=== PATIENT | male | born 1960 | race Caucasian/White ===

== ENCOUNTER 2021-11-18 11:39 | Observation (INO) ==
[2021-11-18] MEDS ORDERED: Naloxone 0.4 MG/ML INJ IVP PRN (14:33)
[2021-11-18] MEDS ORDERED: Ondansetron 4 MG/2 ML VIAL IVP PRN (14:33)
[2021-11-18] MEDS ORDERED: Perflutren Lipid Microsphere 1.3 ML in 0.9 % Sodium Chloride 8.7 ML IVP PRN (15:21)
[2021-11-18 15:38] LABS: Hematocrit 28.6 % (37.5-50.1); Hemoglobin 8.1 g/dL (12.9-16.9); Mean Corpuscular HGB Conc 28.3 g/dL (31.6-35.5)
[2021-11-18 15:41] LABS: Basophils % 0.6 %; Eosinophils # 0.1 K/mcL (0.0-0.6); Eosinophils % 3.1 %; Immature Granulocytes % 0.3 % (0-4); Immature Platelets 2.9 % (1.1-6.1); Lymphocytes # 0.7 K/mcL (0.6-4.6); Mean Corpuscular Hemoglobin 22.5 pg (28.0-33.3); Mean Corpuscular Volume 79.4 fL (83.0-100.0); Monocytes # 0.3 K/mcL (0.0-1.3); Monocytes % 10.7 %; Nucleated Red Blood Cells 0.6 /100 WBC (0); Red Cell Distribution Width 18.6 % (11.5-14.5); Segmented Neutrophils % 63.3 %; White Blood Count 3.2 K/mcL (4.3-11.1)
[2021-11-18 15:46] LABS: Platelet Count 56 K/mcL (140-400)
[2021-11-18 15:55] LABS: INR 1.3
[2021-11-18 16:16] LABS: Alanine Aminotransferase 17 Units/L (7-52); Albumin 2.4 g/dL (3.5-5.7); Albumin/Globulin Ratio 0.8 (1.1-2.2); Alkaline Phosphatase 168 Units/L (34-104); Aspartate Amino Transferase 51 Units/L (13-39); BUN/Creatinine Ratio 36 (6-26); Bilirubin,Direct 0.1 mg/dL (0.0-0.2); Bilirubin,Indirect 0.6 mg/dL (0.0-1.0); Bilirubin,Total 0.7 mg/dL (0.3-1.0); Blood Urea Nitrogen 17 mg/dL (6-20); Calcium 7.5 mg/dL (8.6-10.3); Carbon Dioxide 22 mEq/L (23-29); Chloride 109 mEq/L (98-107); Glucose 95 mg/dL (70-105); Magnesium 1.7 mg/dL (1.6-2.6); Osmolality,Calculated 283 (280-300); Phosphorous 2.6 mg/dL (2.7-4.5); Potassium 4.5 mEq/L (3.5-5.1); Sodium 136 mEq/L (136-145); Total Protein 5.4 g/dL (6.4-8.9); eGFR For African Americans > 60 (> 60); eGFR For Non-African Americans > 60 (> 60)
[2021-11-18 16:17] LABS: Ferritin 10 ng/mL (20-250); Iron < 10 mcg/dL (65-175); Transferrin 219 mg/dL (203-362)
[2021-11-18 16:28] LABS: Hypochromasia Present (Not Present); Platelet Estimate Decreased (Normal)
[2021-11-18 16:31] LABS: Folate > 22.3 ng/mL (3.0-16.0)
[2021-11-18] MEDS ORDERED: Diphenoxylate/Atropine 1 TAB TABLET PO ONE (17:00)
[2021-11-18 17:18] LABS: Vitamin B12 1174 pg/mL (250-1100)
[2021-11-18] MEDS ORDERED: Diphenoxylate/Atropine 1 TAB TABLET PO PRN (18:45)
[2021-11-18] MEDS ORDERED: Iron Sucrose Complex 250 MG in 0.9 % Sodium Chloride 250 ML IVPB SCH (19:00)
[2021-11-18] MEDS: Furosemide 20 MG/2 ML VIAL IVP SCH (19:44)
[2021-11-18] MEDS ORDERED: Furosemide 40 MG in 0.9 % Sodium Chloride 50 ML IV SCH (21:00)
[2021-11-19 02:25] LABS: Eosinophils % 4.5 %; Hemoglobin 7.9 g/dL (12.9-16.9); Immature Granulocytes % 0.3 % (0-4)
[2021-11-19 02:27] LABS: Eosinophils # 0.1 K/mcL (0.0-0.6); White Blood Count 2.9 K/mcL (4.3-11.1)
[2021-11-19 02:28] LABS: Basophils % 0.7 %; Hematocrit 27.5 % (37.5-50.1); Immature Platelets 2.9 % (1.1-6.1); Lymphocytes # 0.6 K/mcL (0.6-4.6); Lymphocytes % 20.5 %; Mean Corpuscular HGB Conc 28.7 g/dL (31.6-35.5); Mean Corpuscular Hemoglobin 23.1 pg (28.0-33.3); Mean Corpuscular Volume 80.4 fL (83.0-100.0); Monocytes # 0.4 K/mcL (0.0-1.3); Monocytes % 12.2 %; Neutrophils # 1.8 K/mcL (1.6-8.9); Red Blood Count 3.42 M/mcL (4.19-5.50); Red Cell Distribution Width 18.5 % (11.5-14.5); Segmented Neutrophils % 61.8 %
[2021-11-19 02:31] LABS: Platelet Count 60 K/mcL (140-400)
[2021-11-19 02:46] LABS: BUN/Creatinine Ratio 28 (6-26); Blood Urea Nitrogen 15 mg/dL (6-20); Calcium 7.4 mg/dL (8.6-10.3); Carbon Dioxide 22 mEq/L (23-29); Chloride 110 mEq/L (98-107); Glucose 106 mg/dL (70-105); Osmolality,Calculated 281 (280-300); Potassium 3.7 mEq/L (3.5-5.1); Sodium 135 mEq/L (136-145); eGFR For African Americans > 60 (> 60); eGFR For Non-African Americans > 60 (> 60)
[2021-11-19 03:36] LABS: Anisocytosis 1+ (Not Present); Hypochromasia Present (Not Present); Large Platelets Present (Not Present); Platelet Estimate Decreased (Normal)
[2021-11-19] MEDS: Furosemide 20 MG/2 ML VIAL IVP SCH (09:43)
[2021-11-19 11:29] VITALS: BP 126/72; PULSE 83; TEMP 97.8; O2SAT 93
[2021-11-19] MEDS ORDERED: Albumin 25% 25gram/100mL 25 GM/100 ML IV.SOLN IVPB SCH (18:30)
== END 2021-11-19 12:17 | disposition home or self-care (01) ==
LOC: 3BNU
PROVIDERS: ADMIT Student in an Organized Health Care Education/Training Program; ATTEND Student in an Organized Health Care Education/Training Program